=== PATIENT | male | born 1960 | race Caucasian/White ===

== ENCOUNTER → 2019-09-10 | Outpatient (CLI) | payer MEDICARE, MEDICAID ==
[~2019-09-10] MED LIST: ATOR10TA9 PO; DIAZ10TA PO; EMPA1TAB5 PO; INSU100C SQ-INSULIN; INSU100V8 SQ; LISI5TAB7 PO; Morphine Pump; POTA10TA5 PO
== END | disposition home or self-care (01) ==
LOC: STAR 08:06
PROVIDERS: ATTEND Internal Medicine Geriatric Medicine
DX: Z01.818 Encounter for other preprocedural examination (principal); K86.1 Other chronic pancreatitis
CPT/HCPCS: 93005

== ENCOUNTER 2019-10-25 06:13 | Day surgery (SDC) | payer MEDICARE, MEDICAID ==
[~2019-10-25] VITALS: Ht 162.6 cm; Wt 49.0 kg
[2019-10-25] MEDS ORDERED: SODIUM CHLORIDE 0.9% 1,000 ML IV SCH (07:07)
[2019-10-25] MEDS ORDERED: LIDOCAINE 2%, 20ML ONE (07:09)
[2019-10-25 07:31] VITALS: BP 115/74
[2019-10-25] MEDS ORDERED: FENTANYL PF 100 MCG/2ML ONE (07:34)
[2019-10-25] MEDS ORDERED: MIDAZOLAM 1 MG/ML, 5ML ONE (07:34)
[2019-10-25] MEDS ORDERED: HEPARIN 1,000 UNITS/ML, 10ML ONE (07:35)
[2019-10-25] MEDS ORDERED: FLUMAZENIL 0.1 MG/1 ML, 5ML ONE (07:35)
[2019-10-25] MEDS ORDERED: NITROGLYCERIN 5 MG/ML, 10ML ONE (07:35)
[2019-10-25] MEDS ORDERED: NALOXONE 1 MG/ML, 2ML ONE (07:35)
[2019-10-25] MEDS ORDERED: PROTAMINE SULFATE 10 MG/ML, 25ML ONE (07:35)
[2019-10-25 07:40] LABS: BASOPHILS # (AUTO) 0.07 x10^3/uL (0-0.1); BASOPHILS % (AUTO) 1 % (0-1); EOSINOPHILS # (AUTO) 0.19 x10^3/uL (0-0.4); EOSINOPHILS % (AUTO) 3 % (1-7); LYMPHOCYTES # (AUTO) 2.22 x10^3/uL (1-3.4); LYMPHOCYTES % (AUTO) 36 % (22-44); MD NO; MEAN CORPUSCULAR HEMOGLOBIN 30.8 pg (27.5-34.5); MEAN CORPUSCULAR HGB CONC 33.1 g/dL (33.2-36.2); MEAN CORPUSCULAR VOLUME 92.9 fL (81-97); MEAN PLATELET VOLUME 8.8 fL (7.4-10.4); MONOCYTES # (AUTO) 0.65 x10^3/uL (0.2-0.8); MONOCYTES % (AUTO) 11 % (2-9); NEUTROPHILS # (AUTO) 3.05 x10^3/uL (1.8-6.8); NEUTROPHILS % (AUTO) 49 % (42-75); PLATELET COUNT 296 x10^3/uL (130-400); RED BLOOD COUNT 4.97 x10^6/uL (4.38-5.82); RED CELL DISTRIBUTION WIDTH 12.9 % (9.4-14.8)
[2019-10-25] MEDS ORDERED: INSU300I SQ-INSULIN (07:40)
[2019-10-25 07:56] LABS: ANION GAP 9 mmol/L (5-15); CHLORIDE 92 mmol/L (98-107); CREATININE 1.09 mg/dL (0.7-1.3)
[2019-10-25] MEDS ORDERED: VISIPAQUE 270 MG/ML, 150ML BOTTLE ONE (08:00)
[2019-10-25] MEDS ORDERED: INSULIN SINGLE DOSE, ER ONE (08:06)
[2019-10-25] MEDS ORDERED: hydrALAzine 20 MG/ML, 1ML ONE (08:45)
[2019-10-25] MEDS ORDERED: CLOPIDOGREL 75 MG TABLET ONE (14:41)
[2019-10-26] MEDS ORDERED: CLOPIDOGREL 75 MG TABLET PO SCH (09:00)
[2019-11-01] MEDS ORDERED: CLOP75TA52 PO (19:27)
== END 2019-10-25 14:45 | disposition home or self-care (01) ==
LOC: OUT 06:13
PROVIDERS: ATTEND Surgery Vascular Surgery
DX: I70.213 Atherosclerosis of native arteries of extremities with intermittent claudication, bilateral legs (principal); E11.40 Type 2 diabetes mellitus with diabetic neuropathy, unspecified; F17.210 Nicotine dependence, cigarettes, uncomplicated; J44.9 Chronic obstructive pulmonary disease, unspecified; Z88.1 Allergy status to other antibiotic agents; Z79.899 Other long term (current) drug therapy; Z72.89 Other problems related to lifestyle; Z88.8 Allergy status to other drugs, medicaments and biological substances; Z79.4 Long term (current) use of insulin
CPT/HCPCS: 36415; 37221; 37223; 75625; 75716; 76937; 80048; 82962; 85025; 99156; 99157; C1751; C1760; C1769; C1874; C1876; C1894; J0360; J1644; J1815; J2250; J2720; J3010; J7030; Q9966; 75630; J2310

== ENCOUNTER → 2019-10-31 | Outpatient (CLI) | payer MEDICARE, MEDICAID ==
[~2019-10-31] MED LIST changes: +CLOP75TA52 PO; +INSU300I SQ-INSULIN; +OMNIPAQUE 350 MG/ML, 150 ML BOTTLE ONE
== END | disposition home or self-care (01) ==
LOC: RAD 15:57
PROVIDERS: ATTEND Surgery Vascular Surgery
DX: I74.5 Embolism and thrombosis of iliac artery (principal); I74.09 Other arterial embolism and thrombosis of abdominal aorta; I70.8 Atherosclerosis of other arteries; N28.1 Cyst of kidney, acquired; K86.89 Other specified diseases of pancreas; I77.9 Disorder of arteries and arterioles, unspecified; E11.51 Type 2 diabetes mellitus with diabetic peripheral angiopathy without gangrene; R03.0 Elevated blood-pressure reading, without diagnosis of hypertension; Z88.2 Allergy status to sulfonamides; Z90.49 Acquired absence of other specified parts of digestive tract; Z96.643 Presence of artificial hip joint, bilateral
CPT/HCPCS: 75635; Q9967

== ENCOUNTER 2020-07-10 08:00 | Outpatient (CLI) | payer MEDICARE, MEDICAID ==
[~2020-07-10] VITALS: Ht 162.6 cm; Wt 43.9 kg
[~2020-07-10 08:00] MED LIST changes: +ACID1TAB7 PO; +NICO-487 TD; -OMNIPAQUE 350 MG/ML, 150 ML BOTTLE ONE
[2020-07-10] MEDS ORDERED: DIAZ10TA PO (09:44)
[2020-07-10] MEDS ORDERED: FURO20TA3 PO (09:44)
[2020-07-10] MEDS ORDERED: EMPA1TAB7 PO (09:44)
[2020-07-10] MEDS ORDERED: POTA10TA31 PO (09:44)
[2020-07-10] MEDS ORDERED: ATOR10TA PO (09:44)
[2020-07-10] MEDS ORDERED: INSU200I SQ (09:44)
[2020-07-10] MEDS ORDERED: INSU100I13 SQ (09:44)
[2020-07-10] MEDS ORDERED: ONDA4TAB7 PO (09:44)
[2020-07-10 09:50] LABS: BASOPHILS % (AUTO) 1 % (0-1); EOSINOPHILS % (AUTO) 1 % (1-7); LYMPHOCYTES % (AUTO) 34 % (22-44); MEAN CORPUSCULAR HGB CONC 32.6 g/dL (33.2-36.2); MEAN PLATELET VOLUME 8.2 fL (7.4-10.4); MONOCYTES % (AUTO) 7 % (2-9); NEUTROPHILS % (AUTO) 58 % (42-75); PLATELET COUNT 282 x10^3/uL (130-400); RED BLOOD COUNT 5.23 x10^6/uL (4.38-5.82); RED CELL DISTRIBUTION WIDTH 13.8 % (9.4-14.8)
[2020-07-10 09:54] LABS: MD NO
[2020-07-10 10:07] LABS: ALBUMIN 3.4 g/dL (3.4-5.0); ANION GAP 8 mmol/L (5-15); CALCIUM 9.4 mg/dL (8.5-10.1); CHLORIDE 101 mmol/L (98-107)
[2020-07-10 10:12] LABS: ALANINE AMINOTRANSFERASE 69 U/L (12-78); ALKALINE PHOSPHATASE 224 U/L (45-117); BILIRUBIN,TOTAL 0.3 mg/dL (0.2-1.0); TOTAL PROTEIN 7.6 g/dL (6.4-8.2)
[2020-07-14] MEDS ORDERED: HEPARIN 1,000 UNITS/ML, 10ML ONE (06:58)
[2020-07-14] MEDS ORDERED: BACITRACIN 50,000 UNIT ONE (06:58)
[2020-07-14] MEDS ORDERED: THROMBIN 5,000 UNIT VIAL TP ONE (06:58)
[2020-07-14] MEDS ORDERED: PROTAMINE SULFATE 10 MG/ML, 5ML ONE (06:58)
[2020-07-14 07:48] VITALS: BP 113/71
[2020-07-14] MEDS ORDERED: AMOX875T PO (07:56)
[2020-07-14] MEDS ORDERED: MORPHINE PUMP SQ (07:56)
[2020-07-14] MEDS ORDERED: LISI5TAB7 PO (07:56)
[2020-07-14] MEDS ORDERED: CHLORHEXIDINE 15 ML UDC ONE (07:58)
[2020-07-14] MEDS ORDERED: LACTATED RINGERS 1,000 ML IV SCH (08:00)
[2020-07-14] MEDS ORDERED: CHLORHEXIDINE 15 ML UDC MM ONE (08:00)
[2020-07-23] MEDS ORDERED: HYDR-3240 PO (09:18)
== END 2020-07-14 09:40 | disposition home or self-care (01) ==
LOC: STAR 08:00 → ORIP 07-14 07:14 → SDC 07-14 07:14 → UNDOADMIN 07-14 07:14 → EDSTATUS 07-14 09:00 → SDC 07-14 09:40 → UNDODISIN 07-14 09:40 → STAR 07-14 09:40
PROVIDERS: ATTEND Surgery Vascular Surgery
DX: Z01.812 Encounter for preprocedural laboratory examination (principal); Z20.828 Contact with and (suspected) exposure to other viral communicable diseases; E11.9 Type 2 diabetes mellitus without complications; N31.8 Other neuromuscular dysfunction of bladder; I73.9 Peripheral vascular disease, unspecified; I77.1 Stricture of artery; R94.31 Abnormal electrocardiogram [ECG] [EKG]
CPT/HCPCS: 36415; 80053; 82962; 85025; 87635; 93005; J7120; 82947; 86850; 86900; J1644; J2720

== ENCOUNTER 2020-07-10 08:18 | Outpatient (CLI) | payer MEDICARE, MEDICAID ==
[2020-07-10] MEDS ORDERED: INSU200I SQ (09:44)
[2020-07-10] MEDS ORDERED: DIAZ10TA PO (09:44)
[2020-07-10] MEDS ORDERED: FURO20TA3 PO (09:44)
[2020-07-10] MEDS ORDERED: INSU100I13 SQ (09:44)
[2020-07-10] MEDS ORDERED: EMPA1TAB7 PO (09:44)
[2020-07-10] MEDS ORDERED: ONDA4TAB7 PO (09:44)
[2020-07-10] MEDS ORDERED: POTA10TA31 PO (09:44)
[2020-07-10] MEDS ORDERED: ATOR10TA PO (09:44)
== END 2020-07-10 23:59 | disposition home or self-care (01) ==
LOC: STAR 08:18
PROVIDERS: ATTEND Surgery Vascular Surgery
DX: Z02.9 Encounter for administrative examinations, unspecified (principal)

== ENCOUNTER 2020-07-14 09:44 | Emergency (ER) | payer MEDICARE, MEDICAID ==
[~2020-07-14] VITALS: Ht 162.6 cm; Wt 43.0 kg
[~2020-07-14 09:44] MED LIST changes: +AMOX875T PO; +ATOR10TA PO; +EMPA1TAB7 PO; +FURO20TA3 PO; +INSU100I13 SQ; +INSU200I SQ; +MORPHINE PUMP SQ; +ONDA4TAB7 PO; +POTA10TA31 PO
--- NOTE | 2020-07-14 09:52 | NUR ---
PT BROUGHT DOWN FROM SAME DAY SURGERY FOR ELEVATED BLOOD GLUCOSE LEVELS. PER MD, HOLD SURGERY DUE TO HIGH INFECTION RISK. PT REPORTS HE STOPPED TAKING DM MEDICATIONS X2 DAYS AGO. PT SITTING IN BED USING CELL PHONE. NAD NOTED AT THIS TIME. AWAITING ORDERS.
[2020-07-14] MEDS ORDERED: SODIUM CHLORIDE FLUSH 10ML SYR IVF ONE (10:00)
[2020-07-14] MEDS ORDERED: PLEASE ENTER HEIGHT AND WEIGHT MC SCH (10:00)
[2020-07-14] MEDS ORDERED: SODIUM CHLORIDE 0.9% 1,000 ML IV ONE (10:00)
[2020-07-14] MEDS ORDERED: SODIUM CHLORIDE 0.9% 1,000ML IVBOLUS ONE (10:00)
[2020-07-14 10:25] LABS: BASOPHILS % (AUTO) 1 % (0-1); EOSINOPHILS % (AUTO) 2 % (1-7); LYMPHOCYTES % (AUTO) 30 % (22-44); MEAN CORPUSCULAR HEMOGLOBIN 29.7 pg (27.5-34.5); MEAN CORPUSCULAR HGB CONC 32.5 g/dL (33.2-36.2); MEAN PLATELET VOLUME 8.3 fL (7.4-10.4); MONOCYTES % (AUTO) 8 % (2-9); NEUTROPHILS % (AUTO) 59 % (42-75); PLATELET COUNT 249 x10^3/uL (130-400); RED BLOOD COUNT 4.89 x10^6/uL (4.38-5.82); RED CELL DISTRIBUTION WIDTH 13.9 % (9.4-14.8)
[2020-07-14 10:26] LABS: MD NO
[2020-07-14 10:36] LABS: ALANINE AMINOTRANSFERASE 47 U/L (12-78); ALBUMIN 3.3 g/dL (3.4-5.0); ANION GAP 2 mmol/L (5-15); CHLORIDE 106 mmol/L (98-107); CREATININE 0.82 mg/dL (0.7-1.3)
[2020-07-14 10:37] LABS: ACETONE, SERUM Negative (Negative)
[2020-07-14 10:38] LABS: ALKALINE PHOSPHATASE 226 U/L (45-117); BILIRUBIN,TOTAL 0.2 mg/dL (0.2-1.0); TOTAL PROTEIN 7.2 g/dL (6.4-8.2)
[2020-07-14] MEDS ORDERED: NICOTINE 14MG/24 HR PATCH.TD24 ONE (10:56)
[2020-07-14] MEDS ORDERED: INSULIN SINGLE DOSE, ER ONE (10:59)
[2020-07-14] MEDS ORDERED: INSULIN REGULAR 100 UNITS/ML, 3ML VIAL SQ-INSULIN ONE (11:00)
[2020-07-14] MEDS ORDERED: NICOTINE 14MG/24 HR PATCH.TD24 TD ONE (11:00)
--- NOTE | 2020-07-14 11:08 | NUR ---
PT SITTING UP IN BED, RESPIRATIONS EVEN AND UNLABORED ON RA. NAD NOTED AT THIS TIME. PT MEDICATED PER EMAR, IVF INFUSING. AWAITING ADMISSION ORDER. PT GIVEN MORE PO FLUIDS. SIDE RAILS UP, CALL LIGHT IN REACH.
--- NOTE | 2020-07-14 11:50 | NUR ---
PT USES URINAL IN BED WITHOUT TROUBLE. URINAL EMPTIED AND REPLACED TO BEDSIDE.
[2020-07-14] MEDS ORDERED: SODIUM CHLORIDE FLUSH 10ML SYR IVF PRN (12:00)
--- NOTE | 2020-07-14 12:26 | NUR ---
PT SITTING UP IN BED TALKING ON PHONE. NAD NOTED AT THIS TIME. AWAITING ADMISSION BED ASSIGNMENT. SIDE RAILS UP, CALL LIGHT IN REACH.
--- NOTE | 2020-07-14 12:41 | NUR ---
HOSPITALIST IN TO DISCUSS PLAN OF CARE WITH PATIENT. QUESTIONABLE WHETHER PT WILL GO TO SURGERY TODAY FOLLOWING BG DECREASE OR RESCHEDULE FOR TUESDAY.
[2020-07-14 13:11] VITALS: BP 146/78
--- NOTE | 2020-07-14 13:11 | NUR ---
PT DRESSED AND READY FOR DC. AWAITING PAPERWORK.
== END 2020-07-14 13:22 | disposition home or self-care (01) ==
LOC: ED 10:03 → EDIP 11:46 → UNDOADMIN 11:46 → ED 13:22
DX: E11.65 Type 2 diabetes mellitus with hyperglycemia (principal)
CPT/HCPCS: 36415; 80053; 82010; 85025; 93005; 96360; 96361; 99284; J1815; J7030; 82947; 86850; 86900

== ENCOUNTER 2020-11-22 08:56 | Emergency (ER) | payer MEDICARE, MEDICAID ==
[~2020-11-22] VITALS: Ht 162.6 cm; Wt 42.8 kg
[~2020-11-22 08:56] MED LIST changes: +HYDR-1067 PO; -NICO-487 TD; +NICO-587 TD
--- NOTE | 2020-11-22 09:15 | NUR ---
PT EDUCATED ON INCENTIVE SPIROMETER USE. PT DEMONSTRATES PROPER USE OF IS AND VERBALIZES UNDERSTANDING.
[2020-11-22] MEDS ORDERED: KETOROLAC 30 MG/1 ML ONE (09:16)
[2020-11-22] MEDS ORDERED: OXYcodone/APAP 5/325MG TABLET ONE (09:17)
--- NOTE | 2020-11-22 09:22 | NUR ---
PT TO XRAY
[2020-11-22] MEDS ORDERED: KETOROLAC 30 MG/1 ML IM ONE (09:30)
[2020-11-22] MEDS ORDERED: OXYcodone/APAP 5/325MG TABLET PO ONE (09:30)
--- NOTE | 2020-11-22 09:32 | NUR ---
PT BACK FROM XRAY. MONITOR IN PLACE.
--- NOTE | 2020-11-22 10:15 | NUR ---
PT TO CT
[2020-11-22 10:18] VITALS: BP 127/72
--- NOTE | 2020-11-22 10:27 | NUR ---
PT BACK FROM CT. MONITOR IN PLACE.
== END 2020-11-22 11:30 | disposition home or self-care (01) ==
LOC: ED 09:40
DX: S22.32XA Fracture of one rib, left side, initial encounter for closed fracture (principal); I10 Essential (primary) hypertension; E11.9 Type 2 diabetes mellitus without complications; W01.0XXA Fall on same level from slipping, tripping and stumbling without subsequent striking against object, initial encounter; Y93.89 Activity, other specified; Y92.009 Unspecified place in unspecified non-institutional (private) residence as the place of occurrence of the external cause; Y99.8 Other external cause status
CPT/HCPCS: 71101; 71250; 96372; 99284; J1885